=== PATIENT | female | born 2000 | race Caucasian/White ===

== ENCOUNTER 2020-07-30 18:48 | Emergency (ER) | payer OTHER ==
[~2020-07-30] VITALS: Ht 167.6 cm; Wt 54.4 kg
[2020-07-31] MEDS ORDERED: ACETAMINOPHEN 325 MG TAB PO ONE (02:30)
[2020-07-31 02:52] VITALS: BP 116/71
== END 2020-07-31 03:08 | disposition home or self-care (01) ==
LOC: ER 18:48
DX: S53.402A Unspecified sprain of left elbow, initial encounter (principal); X58.XXXA Exposure to other specified factors, initial encounter; Y93.89 Activity, other specified; Y92.89 Other specified places as the place of occurrence of the external cause; Y99.8 Other external cause status
CPT/HCPCS: 73080; 81025